=== PATIENT | male | born 1945 | race Caucasian/White ===

== ENCOUNTER 2017-04-08 10:42 | Outpatient (CLI) | payer MEDICARE, BC ==
--- NOTE | 2017-04-08 15:21 | MRI ---
MRI LUMBAR SPINE PERFORMED WITHOUT CONTRAST ENHANCEMENT: History: Back pain. FINDINGS: The vertebral bodies are normal in height. There is degenerative disc narrowing which is most pronoun ellen at L1-2, L4-5, and L5-S1. There is no significant periaortic adenopathy and the visualized portio ns of the kidneys are unremarkable. T12-L1: Unremarkable. L1-2: Degenerative facet changes without canal or foraminal stenosis. L2-3: There is disc bulging and facet and ligamentous hypertrophic changes associated with a moderate degree of canal stenosis. In addition to the disc bulge there is a far right lateral protrusion with out definite significant foraminal narrowing. L3-4: Moderately severe canal stenosis present at this level. Facet and ligamentous hypertrophic calle ges and a fairly broad based annular disc bulge. Some mild right and mild to moderate left foraminal narrowing. L4-5: Canal is mildly stenotic with degenerative facet changes. There is mild right and more severe l eft sided foraminal narrowing. There is a very minimal spondylolisthesis better appreciated along the left side of the canal. L5-S1: No significant canal or foraminal stenosis. IMPRESSION: Areas of canal and foraminal stenosis as discussed above. The canal narrowing is most pronounced at L 2-3 and L3-4. POS: [facility]
== END 2017-04-08 10:43 | disposition home or self-care (01) ==
LOC: MRI 10:42 → SCSMRI 10:43
PROVIDERS: ATTEND Nurse Practitioner Family
DX: M54.5 Low back pain (principal); M48.061 Spinal stenosis, lumbar region without neurogenic claudication
CPT/HCPCS: 72148

== ENCOUNTER 2017-05-19 11:17 | Outpatient (CLI) | payer MEDICARE, BC ==
--- NOTE | 2017-05-19 12:15 | RAD ---
LUMBAR SPINE FOUR VIEWS: Technique: AP, lateral, flexion and extension views of the lumbar spine. History: Pain radiating down left thigh. FINDINGS: Images demonstrate five non-rib bearing lumbar vertebrae. There is mild S-shaped scoliosis of the lum bar spine. Disc space height loss and anterior osteophyte seen at the L1-2 and L4-5 levels. There is mild increa sing anterolisthesis of L4 on L5 measuring approximately 2.6 mm on flexion views. There is no signifi cant change between extension and neutral views. Findings suggest a possible L4-5 facet mild instability. IMPRESSION: 1. Mild anterolisthesis of L4 on L5 and moderate disc space height loss with anterior and posterior o steophytes at the L1-2 level. POS: [facility]
== END 2017-05-19 11:18 | disposition home or self-care (01) ==
LOC: TBSIIMAG 11:17
PROVIDERS: ATTEND Neurological Surgery
DX: M48.061 Spinal stenosis, lumbar region without neurogenic claudication (principal); M43.16 Spondylolisthesis, lumbar region; M25.78 Osteophyte, vertebrae
CPT/HCPCS: 72110

== ENCOUNTER 2017-05-31 13:13 | Outpatient (CLI) | payer MEDICARE, BC ==
[2017-05-31 15:11] LABS: Hemoglobin 14.3 g/dL (14.0-18.0); Mean Corpuscular HGB CONC 33.7 g/dL (32.0-36.0); Mean Corpuscular Hemoglobin 32.7 pg (27.0-31.0); Mean Platelet Volume 6.5 fL (7.4-10.4); Platelet Count 327 thou/uL (130-400); RBC Distribution Width 11.5 % (11.5-14.5); Red Blood Cell (RBC) Count 4.36 mill/uL (4.70-6.10); White Blood Cell (WBC) Count 4.4 thou/uL (4.8-10.8)
[2017-05-31 15:19] LABS: PTT 30.1 SEC (22.9-36.1)
[2017-05-31 15:31] LABS: Anion Gap 14 mmol/L (10-20); BUN (Urea Nitrogen) 14 mg/dL (8.4-25.7); Calc. Creatinine Clearance 0 mL/min (70-130); Calcium 9.9 mg/dL (7.8-10.44); Carbon Dioxide 28 mmol/L (23-31); Chloride 95 mmol/L (98-107); Estimated GFR-MDRD Greater than 90; Glucose 101 mg/dL (83-110); Sodium 132 mmol/L (136-145)
--- NOTE | 2017-05-31 23:46 | EKG ---
Test Reason : MATTIE Blood Pressure : / mmHG Vent. Rate : 083 BPM Atrial Rate : 083 BPM P-R Int : 160 ms QRS Dur : 098 ms QT Int : 354 ms P-R-T Axes : 041 060 024 degrees QTc Int : 415 ms Normal sinus rhythm Cannot rule out Anterior infarct , age undetermined Abnormal ECG When compared with ECG of 08-JUL-2016 21:59, No significant change was found Confirmed by Marlene CHAN ([id number]) on 05/31/2017 11:46:15 PM Referred By: DARSHANA Confirmed By:Marlene CHAN
== END 2017-05-31 13:14 | disposition home or self-care (01) ==
LOC: LABBT 13:13
PROVIDERS: ATTEND Neurological Surgery
DX: Z01.812 Encounter for preprocedural laboratory examination (principal); M48.061 Spinal stenosis, lumbar region without neurogenic claudication
CPT/HCPCS: 80048; 85027; 85610; 85730; 93005; 93010

== ENCOUNTER 2017-06-03 05:42 | Inpatient (IN) | payer MEDICARE, BC, OTHER ==
[2017-05-31 13:37] VITALS: BMI 25.2
--- NOTE | 2017-05-31 20:25 | HP ---
HISTORY OF PRESENT ILLNESS: Mr. Ramos is a 71-year-old male that presents with low back pain and left buttock leg pain. He has been getting worse since 06/2016. He has been walking, bent forward and t he pain is made worse when standing and walking. He has had some relief with physical therapy and an algesics. He continually feels like his left leg is going to give out and it is weak. The right leg and buttocks used to give him problems that has resolved and has made to the left side. He has had injections with Dr. Carmona and Dr. Miller that did not help much. He is also mildly tender ov er bilateral SI joints on palpation. He denies any bowel or bladder incontinence. IMAGING: MRI at [facility]. Flexion, extension x-rays at [facility]. REVIEW OF SYSTEMS: Ten-point review of systems negative, unless stated in the above HPI. PAST MEDICAL HISTORY: Hypertension, gastroesophageal reflux disease, prostate cancer, asthma, diabet es, nephrolithiasis, seasonal allergies. PAST SURGICAL HISTORY: Knee arthroscopy x2. Total knee replacement, left, 06/08/2012; prostatectomy , hernia repair. FAMILY HISTORY: Father is . Mother is . SOCIAL HISTORY: The patient is a nonsmoker. MEDICATIONS: 1. Losartan. 2. Potassium. 3. Hydrochlorothiazide 50/12.5 mg tablet 1 tablet orally once a day. 4. Aspirin 81 mg oral. 5. Motrin. 6. Calcium. 7. Vitamin B6. 8. Sudafed. 9. Orphenadrine citrate ER 100 mg tablet extended release 12 hour 1 tablet at bedtime orally once a day. 10. Ventolin HFA 108 mcg/ACT aerosol solution 2 puffs as needed and inhalation q.6 h. 11. Ranitidine 75. 12. Ondansetron 4 mg tablet. 13. Fluticasone propionate 50 mcg/ACT suspension nasal. 14. Famotidine 40 mg tablet oral. ALLERGIES: No known drug allergies. PHYSICAL EXAMINATION: HEENT: Normocephalic, atraumatic. Hearing intact. Moist mucous membranes. Trachea is midline. EYES: Pupils equal and reactive to light. Extraocular muscles are intact. Sclerae is white, nonict kwesi. PSYCHIATRIC: Normal mood and affect. CARDIOVASCULAR/CARDIOPULMONARY: No cyanosis or clubbing noted. Intact pedal pulses bilaterally. MUSCULOSKELETAL: Lower extremities, 5/5 strength in bilateral iliopsoas, quadriceps, hamstrings, rig ht tibialis anterior and extensor hallucis longus. Sensory deficits bilaterally in the posterior thi ghs, left greater than right, tender to palpation on the left greater than right SI joint. RESPIRATORY: Even respirations, good effort in all lung mackey, sound clear with no wheezing or crac kles. NEUROLOGIC: Cranial nerves II-XII are grossly intact. Speech is fluent. He answers my questions ap propriately. The patient has gait and station that is bent forward and walking. ASSESSMENT: 1. Spinal stenosis, lumbar region with neurogenic claudication. 2. Low back pain. PLAN: Laminectomy L3-L5. Hemilaminectomy, left L2-L3. We discussed the risks, benefits, and possib le complications of surgery with the patient. The patient agrees to surgery and understands risks fu lly. He is willing to proceed with the surgery.
[2017-06-03] MEDS ORDERED: CEFAZOLIN/Water 2 GM/20 ML SYRINGE ONE (06:23)
[2017-06-03] MEDS ORDERED: Bupivacaine PF 0.5% 30 ML VIAL ONE (06:25)
[2017-06-03] MEDS ORDERED: Sodium Chloride 0.9% 10 ML ONE ×2 (06:25→09:23)
[2017-06-03] MEDS ORDERED: Famotidine/PF 20 mg/2ml Vial ONE (06:39)
[2017-06-03] MEDS ORDERED: Albumin 5% 500 ML ONE (06:39)
[2017-06-03] MEDS ORDERED: Phenylephrine 10 MG/NS 250 ML 250 ML ONE (06:39)
[2017-06-03] MEDS ORDERED: Fentanyl 250 MCG/5 ML VIAL ONE (07:07)
[2017-06-03] MEDS ORDERED: Thrombin 5000 UNITS/5 ML VIAL ONE (07:24)
[2017-06-03] MEDS ORDERED: Meperidine HCl/PF 25 MG/ML VIAL SLOW IVP PRN (09:35)
[2017-06-03] MEDS ORDERED: Promethazine HCl 25 MG/ML VIAL IM PRN (09:35)
[2017-06-03] MEDS ORDERED: Morphine Sulfate 2 MG/ML SYRINGE SLOW IVP PRN (09:35)
[2017-06-03] MEDS ORDERED: Promethazine HCl 25 MG/ML VIAL SLOW IVP PRN (09:35)
[2017-06-03] MEDS ORDERED: HYDROmorphone 2 MG/ML VIAL SLOW IVP PRN (09:35)
[2017-06-03] MEDS ORDERED: Ondansetron HCl/PF 4 MG/2 ML Vial IVP PRN ×2 (09:35→10:03)
[2017-06-03] MEDS ORDERED: HYDROmorphone 0.5 MG/0.5 ML SYRINGE ONE (09:56)
[2017-06-03] MEDS ORDERED: Acetaminophen/Codeine 30-300mg Tablet PO PRN (10:03)
[2017-06-03] MEDS ORDERED: tiZANidine HCl 4 MG TAB PO PRN (10:03)
[2017-06-03] MEDS ORDERED: Morphine 2 MG/ML SYRINGE SLOW IVP PRN ×2 (10:03)
[2017-06-03] MEDS ORDERED: PROVENTIL INHALER 6.7 G (200 INHALATIONS) INH PRN ×2 (10:05)
[2017-06-03] MEDS ORDERED: Cetirizine HCl 10 MG TAB PO PRN (10:05)
--- NOTE | 2017-06-03 11:42 | OP ---
DATE OF PROCEDURE: 06/03/2016 SURGEON: Lois Avalos M.D. THIRD HELPER: eJy Minor PA-C. PREOPERATIVE INDICATION: Treat pain, prevent neurological deterioration. PREOPERATIVE DIAGNOSES: Multilevel lumbar stenosis with neurogenic claudication. POSTOPERATIVE DIAGNOSIS: Multilevel lumbar stenosis with neurogenic claudication. OPERATIVE PROCEDURE: Decompressive laminectomy, medial facetectomy and foraminotomy, left L2-3, bila teral L3-L4, and bilateral L4-5. PREOPERATIVE MEDICATION: Ancef 2 grams IV. DRAIN NUMBER: One. DRAIN TYPE: 10 Lebanese Eder. OPERATIVE DICTATION: The patient was brought to the operating room. General endotracheal anesthesia was induced. The patient was positioned prone on a gel-filled chest rolls. A lateral fluoro radiog raph was used to plan our incision. The lumbar skin was sterilely prepped and draped. We opened wit h a 10 blade knife and controlled bleeding with bipolar and monopolar cautery. We used monopolar cau gurinder to dissect through subcutaneous tissues to the thoracodorsal fascia. We incised the fascia in t he midline and reflected the paraspinal muscles off the spinous process of the lamina of L2, L3, L4 a nd the top of L5. A self-retaining retractor was placed and a lateral fluoro radiograph confirmed th e levels upon which we were operating. Using an Adson rongeur we removed the spinous processes and t hinned the lamina on the left side of L2, all of L3, all of L4, and superior portion of L5. With the Kerrison rongeur, we fashioned the laminectomy down the midline. We widened our laminectomy defect by performing medial facetectomies and brought the operating microscope into the field. Under micros copic magnification and using microsurgical techniques, we undermined the lateral recesses. We perfo rmed medial facetectomies and removed the yellow ligament until we were clearly around the thecal sac and identified the traversing and exiting nerve roots and performed a foraminotomy over the left L2 root, both L3 roots, both L4 roots and both L5 roots. At the completion of our decompression, a Murp hy ball probe could pass through the lateral recess and out the foramen of each of the nerves we deco mpressed. The thecal sac no longer had any pressure on it. We controlled bleeding with gentle bipol ar cautery, small pledgets of Gelfoam in the lateral recesses and bone wax. We tunneled a drain infe riorly through a separate stab incision and closed our wound in anatomic layers over a drain. This w as a clean case and no contamination.
[2017-06-03] MEDS ORDERED: Ondansetron HCl/PF 4 MG/2 ML Vial ONE (15:34)
[2017-06-03] MEDS ORDERED: PROPOFOL 200 MG/20 ML VIAL ONE (15:34)
[2017-06-03] MEDS ORDERED: Dexamethasone 20 MG/5 ML VIAL ONE (15:34)
[2017-06-03] MEDS ORDERED: Metoclopramide HCl 10 MG/2 ML VIAL ONE (15:34)
[2017-06-03] MEDS ORDERED: PHENYLEPHRINE-NS 100 MCG/ML 10 ML SYRINGE ONE (15:34)
[2017-06-03] MEDS ORDERED: Glycopyrrolate 0.2 MG/ML 5 ML SYRINGE ONE (15:34)
[2017-06-03] MEDS ORDERED: Lidocaine 1% PF 5 ML VIAL ONE (15:34)
[2017-06-03] MEDS: CEFAZOLIN/Water 2 GM/20 ML SYRINGE SLOW IVP SCH ×2 (15:43→21:00)
[2017-06-03] MEDS ORDERED: Fluticasone Propionate [Flovent Diskus] 50 MCG INH SCH (18:30)
[2017-06-03] MEDS: pyridOXINE 50 MG (B6) TAB PO SCH (20:49)
[2017-06-03] MEDS: Gabapentin 300 MG CAP PO SCH (20:49)
[2017-06-03] MEDS: Famotidine 20 MG TAB PO SCH (20:50)
[2017-06-03] MEDS: Calcium Carbonate 600 MG TAB PO SCH (20:51)
[2017-06-03] MEDS: Sodium Chloride 0.9% 1,000 ML IV SCH ×2 (20:55→23:16)
[2017-06-03] MEDS ORDERED: Ibuprofen 600 MG TAB PO SCH (21:00)
[2017-06-03] MEDS: Acetaminophen/Codeine 30-300mg Tablet PO PRN (22:30)
[2017-06-04] MEDS: CEFAZOLIN/Water 2 GM/20 ML SYRINGE SLOW IVP SCH ×3 (06:58→21:45)
[2017-06-04] MEDS: Losartan 25 MG TAB PO SCH (08:59)
[2017-06-04] MEDS: Pseudoephedrine HCl 30 MG TAB PO SCH (09:01)
[2017-06-04] MEDS: pyridOXINE 50 MG (B6) TAB PO SCH ×2 (09:01→21:45)
[2017-06-04] MEDS: Calcium Carbonate 600 MG TAB PO SCH ×2 (09:01→21:44)
[2017-06-04] MEDS: Hydrochlorothiazide 25 MG TAB PO SCH (09:03)
[2017-06-04] MEDS: Acetaminophen/Codeine 30-300mg Tablet PO PRN ×3 (11:32→19:32)
[2017-06-04] MEDS: Sodium Chloride 0.9% 1,000 ML IV SCH (13:01)
[2017-06-04] MEDS ORDERED: Mag-Al Plus 1200 MG/1200 MG/120 MG/30 ML UDCUP PO PRN (15:00)
[2017-06-04] MEDS ORDERED: Milk Of Magnesia 30 ML UDCUP PO PRN (15:01)
[2017-06-04] MEDS ORDERED: Dextrose 50% Abboject 50 ML SYRINGE SLOW IVP PRN (15:50)
[2017-06-04] MEDS ORDERED: HumaLOG 300 UNITS/3 ML VIAL SC PRN (15:50)
[2017-06-04] MEDS ORDERED: Dextrose 5% in Water 1,000 ML IV PRN (15:50)
[2017-06-04] MEDS ORDERED: hydrALAZINE 20 MG/ML VIAL SLOW IVP PRN (15:51)
--- NOTE | 2017-06-04 15:51 | PDOC.PN ---
- Subjective Encounter Start Date: 06/04/17 Encounter Start Time: 15:49 Pt seen for management of medical comorbidities, including hypertension. Reports LLQ pain, on and off, no nausea or vomiting. Last BM was yesterday AM. No fevers or chills. - Objective MAR Reviewed: Yes Vital Signs & Weight: Vital Signs (12 hours) Temp Pulse Resp BP BP Pulse Ox 06/04/17 14:38 98 F 96 16 130/85 97 06/04/17 11:30 97.9 F 85 16 136/78 99 06/04/17 08:54 98.1 F 76 14 134/81 95 06/04/17 07:50 98.1 F 89 14 124/53 L 95 06/04/17 04:35 98.8 F 81 18 119/70 96 Weight Weight 166 lb I&O: 06/03/17 06/04/17 06/05/17 06:59 06:59 06:59 Intake Total 1000 Output Total 200 Balance 800 Phys Exam - Physical Examination Constitutional: NAD HEENT: moist MMs Neck: supple Respiratory: clear to auscultation bilateral Cardiovascular: RRR Gastrointestinal: soft, positive bowel sounds Mild LLQ tenderness, no guarding or rigidity Neurological: moves all 4 limbs s/p spine surgery Psychiatric: normal affect Dx/Plan (1) HTN (hypertension) Code(s): I10 - ESSENTIAL (PRIMARY) HYPERTENSION Status: Chronic (2) Asthma Code(s): J45.909 - UNSPECIFIED ASTHMA, UNCOMPLICATED Status: Chronic (3) GERD (gastroesophageal reflux disease) Code(s): K21.9 - GASTRO-ESOPHAGEAL REFLUX DISEASE WITHOUT ESOPHAGITIS Status: Chronic (4) Nephrolithiasis Status: Chronic - Plan plan discussed w/ family, PT/OT, out of bed/ambulate * . Monitor vital signs, titrate antihypertensives as needed. PRN IV hydralazine for blood pressure spikes. Asthma stable. Await KUB films (ordered by neurosurgery service). Code status; Full Review of Systems - Review of Systems Cardiovascular: negative: chest pain, palpitations, orthopnea, paroxysmal nocturnal dyspnea, edema, light headedness Gastrointestinal: Abdominal Pain. negative: Nausea, Vomiting, Diarrhea, Constipation, Melena, Hematochezia - Medications/Allergies Allergies/Adverse Reactions: Allergies Allergy/AdvReac Type Severity Reaction Status Date / Time No Known Drug Allergies Allergy Verified 08/22/16 01:38 Medications: Current Medications Acetaminophen/Codeine Phosphate (Tylenol #3) 1 tab PO Q3H PRN PRN Reason: Mild Pain (1-3) Acetaminophen/Codeine Phosphate (Tylenol #3) 2 tab PO Q3H PRN PRN Reason: Moderate Pain (4-6) Last Admin: 06/04/17 11:32 Dose: 2 tab Al Hydroxide/Mg Hydroxide (Maalox Plus) 30 ml PO Q6H PRN PRN Reason: Heartburn or Indigestion Albuterol Sulfate (Proventil Hfa) 1 puff INH Q4H PRN PRN Reason: SOB &/or Wheezing Calcium Carbonate (Caltrate) 600 mg PO BID [facility] Last Admin: 06/04/17 09:01 Dose: 600 mg Cefazolin Sodium (Ancef) 2 gm SLOW IVP 0600,1400,2200 [facility] Stop: 06/04/17 22:01 Last Admin: 06/04/17 14:14 Dose: 2 gm Famotidine (Pepcid) 20 mg PO [facility] Last Admin: 06/03/17 20:50 Dose: 20 mg Gabapentin (Neurontin) 300 mg PO [facility] Last Admin: 06/03/17 20:49 Dose: 300 mg Hydrochlorothiazide (Hydrochlorothiazide) 12.5 mg PO DAILY [facility] Last Admin: 06/04/17 09:03 Dose: 12.5 mg Sodium Chloride (Normal Saline 0.9%) 1,000 mls @ 75 mls/hr IV .[id number] [facility] Last Admin: 06/04/17 13:01 Dose: Not Given Losartan Potassium (Cozaar) 100 mg PO DAILY [facility] Last Admin: 06/04/17 08:59 Dose: 100 mg Magnesium Hydroxide (Milk Of Magnesium) 30 ml PO DAILYPRN PRN PRN Reason: Constipation Last Admin: 06/04/17 15:34 Dose: 30 ml Morphine Sulfate (Morphine) 2 mg SLOW IVP Q1H PRN PRN Reason: Moderate Breakthrough Pain Morphine Sulfate (Morphine) 4 mg SLOW IVP Q1H PRN PRN Reason: Severe Breakthrough Pain Ondansetron HCl (Zofran) 4 mg IVP Q6H PRN PRN Reason: Nausea/Vomiting Pantoprazole Sodium (Protonix) 40 mg PO DAILY [facility] Last Admin: 06/04/17 09:01 Dose: 40 mg Pseudoephedrine HCl (Sudafed) 30 mg PO DAILY [facility] Last Admin: 06/04/17 09:01 Dose: 30 mg Pyridoxine HCl (Vitamin B 6) 50 mg PO HS [facility] Last Admin: 06/03/17 20:49 Dose: 50 mg Pyridoxine HCl (Vitamin B 6) 25 mg PO DAILY [facility] Last Admin: 06/04/17 09:01 Dose: 25 mg Sodium Chloride (Flush - Normal Saline) 10 ml IVF PRN PRN PRN Reason: Saline Flush Tizanidine HCl (Zanaflex) 4 mg PO Q6H PRN PRN Reason: Muscle Spasm
--- NOTE | 2017-06-04 17:00 | RAD ---
EXAM: ONE VIEW ABDOMEN 06/04/17 HISTORY: Left lower quadrant pain. COMPARISON: None. FINDINGS: Nonspecific bowel gas pattern. No evidence of distention or dilatation. No pneumoperitoneum on the pineda pine projection. There is a linear opacity projecting over the midline and right aspect of the pelvis . Etiology is uncertain. Correlate clinically. IMPRESSION: 1. Linear opacity projecting over the pelvis as above. 2. Nonspecific bowel gas pattern. POS: [facility]
[2017-06-04 17:54] LABS: Bilirubin Negative (Negative); Blood, Urine Negative (Negative); Clarity CLEAR (Clear); Glucose, Urine (Dipstick) Negative (Negative); Leukocyte Negative (Negative); Nitrite Negative (Negative); Protein, Urine (Dipstick) Negative (Neg-Trace); Specific Gravity, Urine 1.014 (1.002-1.036); Urobilinogen 0.2 mg/dL (0.2-1.0)
[2017-06-04 17:59] LABS: Bacteria/HPF None Seen HPF (None Seen); Hyaline Casts/LPF 0-3 HYALINE CAST LPF (0-3 Hyaline); RBC/HPF 0-3 HPF (0-3); Squamous Epithelial None Seen HPF (0-3); WBC/HPF None Seen HPF (0-3)
[2017-06-04] MEDS: Gabapentin 300 MG CAP PO SCH (21:44)
[2017-06-04] MEDS: Famotidine 20 MG TAB PO SCH (21:45)
[2017-06-05] MEDS: Sodium Chloride 0.9% 1,000 ML IV SCH (02:19)
[2017-06-05] MEDS: Calcium Carbonate 600 MG TAB PO SCH (08:25)
[2017-06-05] MEDS: Hydrochlorothiazide 25 MG TAB PO SCH (08:25)
[2017-06-05] MEDS: pyridOXINE 50 MG (B6) TAB PO SCH (08:26)
[2017-06-05] MEDS: Losartan 25 MG TAB PO SCH (08:26)
[2017-06-05] MEDS: Pseudoephedrine HCl 30 MG TAB PO SCH (08:26)
[2017-06-05 08:40] VITALS: BP 143/88; TEMP 98.1
[2017-06-05] MEDS: Acetaminophen/Codeine 30-300mg Tablet PO PRN (10:44)
== END 2017-06-05 12:49 | disposition home or self-care (01) | DRG 517 ==
LOC: SDC 05:42 → SJJU 10:03
PROVIDERS: ADMIT Neurological Surgery; ATTEND Neurological Surgery
PROC: 01NB0ZZ Release Lumbar Nerve, Open Approach (ICD-10-PCS; principal; 2017-06-03)
DX: M48.062 Spinal stenosis, lumbar region with neurogenic claudication (principal); E11.9 Type 2 diabetes mellitus without complications; I10 Essential (primary) hypertension; K21.9 Gastro-esophageal reflux disease without esophagitis; J45.909 Unspecified asthma, uncomplicated; R10.32 Left lower quadrant pain; J30.2 Other seasonal allergic rhinitis; Z79.82 Long term (current) use of aspirin
CPT/HCPCS: 74018; 76001; 80048; 81001; 85027; 85610; 85730; 93005; 93010; A4216; J0131; J1100; J1170; J2001; J2405; J2704; J2765; J3010; J3370; J3490; P9045; S0020; S0028

== ENCOUNTER 2019-08-02 12:09 | Outpatient (CLI) | payer MEDICARE, OTHER ==
--- NOTE | 2019-08-02 14:14 | MRI ---
EXAM: LEFT SHOULDER MRI WITHOUT IV CONTRAST: 08/02/19 HISTORY: Acute pain left shoulder, recent injury. Prior shoulder postoperative changes. Multiplanar and multisequence MRI examination of the shoulder is performed. Evidence for prior rotato r cuff repair and biceps tenodesis. There is fairly extensive intramuscular and intermuscular posttra umatic hemorrhagic changes or edematous changes including the supraspinatus, infraspinatus, and less severe Teres minor, deltoid and subscapularis muscles. This may well represent intramuscular strain a nd/or contusion. Irregular mildly retracted supraspinatus and conjoint tendon and anterior infraspina tus tendons with associated tendinopathy as well as some delamination. Fluid noted within the subacro mial and subdeltoid bursal regions. No intact intra-articular biceps tendon. The subscapularis tendon insertion region, particularly superiorly is very poorly defined and thin and is probably at least p artially disrupted. There is associated tendinopathy. Poorly defined blunted labrum. No evidence for acute osteochondral defect or significant acute abnormal marrow signal. Exam is significantly limited because of motion artifact. IMPRESSION: Postsurgical repair of the rotator cuff and biceps tendon with no intact intra-articular biceps. Fairly extensive abnormal intramuscular and intermuscular edema or posttraumatic hemorrhagic fluid in cluding the supraspinatus, infraspinatus, teres minor, deltoid, and subscapularis muscles. Evidence f or intramuscular strain and/or contusion. Irregular mildly retracted tears of the supraspinatus, conjoint tendon, and anterior infraspinatus te ndons. Poorly defined blunted labrum. No significant acute abnormal marrow edema. Exam limited technically because of motion artifact. POS: [facility]
== END 2019-08-02 12:10 | disposition home or self-care (01) ==
LOC: BICMRI 12:09
PROVIDERS: ATTEND Family Medicine Sports Medicine
DX: M25.512 Pain in left shoulder (principal); S46.012D Strain of muscle(s) and tendon(s) of the rotator cuff of left shoulder, subsequent encounter; R93.7 Abnormal findings on diagnostic imaging of other parts of musculoskeletal system; Z98.890 Other specified postprocedural states

== ENCOUNTER 2022-05-26 12:22 | Outpatient (CLI) | payer MEDICARE, OTHER | END 2022-05-26 12:23 | disposition home or self-care (01) | LOC: TBSIIMAG 12:22 | PROVIDERS: ATTEND Neurological Surgery | DX: M43.16 Spondylolisthesis, lumbar region (principal); M51.36 Other intervertebral disc degeneration, lumbar region | CPT/HCPCS: 72148 ==

== ENCOUNTER 2023-05-30 09:49 | Outpatient (CLI) | payer MEDICARE | END 2023-05-30 09:50 | disposition home or self-care (01) | LOC: SCSMRI 09:49 | PROVIDERS: ATTEND Otolaryngology | DX: R42 Dizziness and giddiness (principal); I67.89 Other cerebrovascular disease; H74.8X2 Other specified disorders of left middle ear and mastoid | CPT/HCPCS: 70553; 82565 ==